=== PATIENT | male | born 1995 | race Caucasian/White ===

== ENCOUNTER → 2020-12-31 | Outpatient (REF) | payer BC | LOC: M SFHCPLAZ 15:00 | PROVIDERS: ATTEND Family Medicine | DX: Z13.220 Encounter for screening for lipoid disorders (principal) ==

== ENCOUNTER → 2021-01-01 | Outpatient (CLI) | payer BC ==
[2021-01-01 12:12] LABS: CHOLESTEROL RISK RATIO 2.452 (<5)
== END ==
LOC: M PLALAB 07:53
PROVIDERS: ATTEND Student in an Organized Health Care Education/Training Program
DX: Z13.220 Encounter for screening for lipoid disorders (principal)